=== PATIENT | male | born 1950 | race Caucasian/White ===

== ENCOUNTER 2016-07-14 06:06 | Day surgery (SDC) | payer OTHER ==
[~2016-07-14] VITALS: Ht 182.9 cm; Wt 96.1 kg
[~2016-07-14 06:06] MED LIST: AMMO226L2 TP; BETA15CR3 TP; CALC60CR2 TP; CLOB15CR3 TOP; LEVO25TA5 PO; LOSA1TAB35 PO; OXYC1TAB24 PO; SIMV40TA5 PO
[2016-07-14] MEDS ORDERED: fentaNYL-PF 50 mCg/mL 2 mL Inj ONE (06:07)
[2016-07-14] MEDS ORDERED: Propofol 10,000 mCg/mL 20 mL Inj ONE (06:07)
[2016-07-14] MEDS: Lactated Ringer's 1,000 ML IV SCH ×2 (06:17→07:55)
[2016-07-14 06:22] VITALS: BP 135/70; PULSE 50; RESP 16; O2SAT 94
[2016-07-14] MEDS ORDERED: oxyCODONE-Acetamin 5-325 mg Tablet PO PRN (07:20)
[2016-07-14] MEDS ORDERED: Lactated Ringer's 500 ML IV PRN (08:08)
[2016-07-14] MEDS ORDERED: Lactated Ringer's 1,000 ML IV SCH (08:08)
[2016-07-14] MEDS ORDERED: Phenylephrine 10,000 mCg/mL Inj IVPUSH PRN (08:10)
[2016-07-14] MEDS ORDERED: fentaNYL-PF 50 mCg/mL 2 mL Inj IVPUSH PRN (08:10)
[2016-07-14] MEDS ORDERED: Ondansetron 2 mg/mL 2 mL Inj IVPUSH PRN (08:10)
[2016-07-14] MEDS ORDERED: EPHEDrine Sulfate 50 mg/mL Inj IVPUSH PRN (08:10)
[2016-07-14] MEDS ORDERED: Atropine 0.4 mg/mL Inj IVPUSH PRN (08:10)
[2016-07-14] MEDS ORDERED: Lidocaine 1%-Epi 1:100,000 20 mL Inj INJ ONE (08:10)
[2016-07-14 08:25] VITALS: BP 132/86; PULSE 56; RESP 16; O2SAT 96
[2016-07-14 08:55] VITALS: BP 116/7; PULSE 68; RESP 14; O2SAT 98
--- NOTE | 2016-07-14 09:04 | OP ---
[address] [address] OPERATIVE REPORT PATIENT: JONNY ENNIS : 1950 MR#: [id number] ADMIT: 07/14/2016 JOB ID: [id number] DATE OF SURGERY: 07/14/2016 PREOPERATIVE DIAGNOSIS(ES): Right carpal tunnel syndrome. POSTOPERATIVE DIAGNOSIS(ES): Right carpal tunnel syndrome. PROCEDURE: Right open carpal tunnel release. SURGEON: Justin Levy D.O. ANESTHESIA: Anne Marie block. HISTORY: The patient is a pleasant 65-year-old male with a longstanding history of right hand pain and paresthesias. He failed conservative treatment with nighttime bracing and demonstrated some findings of carpal tunnel syndrome on electrodiagnostic studies. As such we discussed the risks, benefits, and indications to proceed with a right open carpal tunnel release. He understood the risks include, but not limited to, neurovascular injury, tendon injury, infection, failure of fixation, failure to resolve the patient's preoperative symptoms, stiffness, persistent pain which may require further intervention. Patient had all questions answered. Consent was signed and placed in the chart. PROCEDURE IN DETAIL: The patient was brought to the operative suite and placed supine on the operating table. Surgical time-out was performed. Everyone in the room was in agreement. After appropriate anesthesia was obtained, the right hand was then prepped and draped in sterile fashion. A 2 cm longitudinal incision was made in line with the radial aspect of the ring finger and ulnar aspect of the palmaris longus. The incision was kept distal to the wrist crease and proximal to Obrien's cardinal line. Subcutaneous tissues were dissected with bipolar electrocautery utilized to maintain hemostasis throughout the procedure. The palmar fascia was first identified and incised longitudinally in line with the skin incision followed by exposure of the underlying transcarpal ligament. The transcarpal ligament was then released in its entirety to include the distal extent of the antebrachial fascia. Copious irrigation was performed followed by closure of skin with 5-0 nylon simple interrupted fashion. The patient was then placed in a bulky soft dressing. ESTIMATED BLOOD LOSS: Less than 1 cc. COMPLICATIONS: None. DISPOSITION: The patient tolerated the procedure well. Anesthesia was reversed. The patient was transferred to PACU for recovery. POSTOPERATIVE PLAN: The patient will follow up in the office in 2 weeks. We will remove the patient's sutures at that time and have him start working on range of motion and scar mobilization.
--- NOTE | 2016-07-14 17:41 | PCM.ANEP1 ---
Post Anesthesia PACU Phase 1 Assessment Anesthetic Administered: Regional Block (shan block) Level of Alertness: Awake, talking NAILS's with Equal Strength: Yes Pain: No Nausea or Vomiting: No CV Function & Hydration Stable: No Airway Device: Oxygen Delivery: Room Air Lungs: Normal Air Movement Dermatome Level: Full Sensation PACU Phase 2 Assessment Complications: No Follow up Care: N/A Patient Instructions Provided: N/A Giovanny Mccarthy MD July 14, 2016 17:41
--- NOTE | 2016-07-14 17:41 | PCM.HPANE ---
Patient Data Surgeon Admitting Provider: Attending Provider:Justin Levy DO Primary Care Physician:Ramakrishna Galindo MD Other Provider:Indu Eddy Anesthesia Reason for Visit Right Carpal Tunnel Syndrome Ht/WT & BMI Height (Feet): 6 Height (Inches): 0 Weight (Kilograms): 96.1 Body Mass Index 28.00 Allergies Coded Allergies: No Known Allergies (Unverified , 07/23/15) Past Anesthesia History Anesthesia History: Denies:: Abnormal Airway, Anesthesia Reactions, Difficult Intubation, Fam Anesthesia Reaction, Fam Malignant Hypertherm, Malignant Hyperthermia Diabetes History Hx Diabetes?: No Type of Diabetes: Type II Glycemic Control: Diet Controlled MRSA MRSA: No Medications Home Meds Incl Beta Lele: No Reported Medications Calcipotriene (Dovonex)120 Gm Cream..g.120 Gm TP BID 0.005% 07/23/15 Ammonium Lactate (Lac-Hydrin Five)113 Gm [id number] Gm TP BID 12% 07/23/15 Clobetasol Propionate/Emoll (Clobetasol Emollient 0.05% Crm)15 Gm Cream..g.1 Appl TOP BID #1 TUBE 07/23/15 Simvastatin 40 Mg [id number] Mg PO HS 30 Days Ref 0 07/23/15 Losartan/HCTZ 100-12.5 mg 1 Each Tablet1 Tablet PO DAILY Ref 0 07/23/15 Betamethasone Dipropionate 15 Gm Cream..g.15 Gm TP DAILY 07/23/15 Levothyroxine 25 Mcg [id number] Mcg PO DAILY Ref 0 07/23/15 oxyCODONE-Acetaminophen 5-325 mg 1 Each Tablet1-2 Tab PO DAILY PRN For Pain Ref 0 07/23/15 History History of ENT Problems?: Yes HEENT History: Denies:: Abnormal Airway Cataracts Difficult Intubation Dysphagia Glaucoma Hearing Problem Sinus Problem TMJ Denture Type: None Teeth Condition: Within Normal Limits Hx of Heart Problems?: Yes Cardiovascular History: Positive for:: Coronary Artery Disease (hyperlipidemia ) Hypertension Denies:: AICD Abdominal Aortic Aneurism Atrial Fibrillation Cardiac Surgery Chest Pain Congestive Heart Failure Edema Heart Murmur Irregular Heartbeat Pacemaker Peripheral Vascular Rheumatic Fever Thrombophlebitis Valvular Heart Disease Hx of Respiratory Problem?: No Respiratory History: Denies:: Asthma COPD Chest Surgery Cough Dyspnea Emphysema Hemoptysis Oxygen Administration Pneumonia Pulmonary Embolism Tuberculosis Use of C-PAP Machine Use of Inhalers / NEBS Hx Neurologic Problems?: No Neurological History: Denies:: Alzheimer's Disease CVA Dementia Dizziness Headaches Multiple Sclerosis Parkinson's Disease Peripheral Neuropathy Seizures TIA Hx of GI Problems?: Yes Gastrointestinal History: Denies:: Cirrhosis Diverticulitis Gall Bladder Disease Gastroesphageal Reflux Gastrointestinal Bleeding Heartburn Hepatitis Hiatal Hernia Liver Disease Rectal Bleeding Other GI Pertinent History: hx of diverticulitus with bowel resection Hx of Problems?: No Genitourinary History: Denies:: HX of Hemodialysis Kidney Stones Urinary Tract Infection HX of Peritoneal Dialysis: No Male Hx: Denies:: Prostate Problems Scrotal Mass Testicular Surgery Skin History: Denies:: History Skin Disorders? Pressure Ulcers Hx Musculoskeletal Problems?: Yes Musculoskeletal History: Positive for:: Degenerative Joint (r carpal tunnel, chronic r shoulder pain) Joint Replacement (S/P RT UNI KNEE) Musculoskeletal Trauma (S/P LT KNEE SCOPE) Denies:: Back Injury Fibromyalgia Myasthenia Gravis Osteoarthritis Rheumatoid Arthritis Systemic Lupus Hx of Psycho/Social Problems?: No Psycho Social History: Denies:: Anxiety Bipolar Disorder Hx Depression Suicide Attempt Hx Surgeries?: Yes (bowel resection, r uni knee, r carpal tunnel) Hx Any Other Health Problems?: Yes Other History: Positive for:: Thyroid Disease (hypo) Denies:: Cancer Endocrine Disease Hospitalization History Blood Transfusions: Denies:: Blood Transfusions Hx Diabetes: No Hx Alcohol Use: Yes (mild) Smoking Status: Former Smoker Have You Smoked inLast 12 mo: No Stop/Bang Risk Assessment Category Category 1A: Patient has history of documented sleep apnea, and HAS NOT received any narcotic, sedative or anesthesia administration during this stay. Category 1B: Patient has history of documented sleep apnea, and HAS received any narcotic , sedative or anesthesia administration during this stay Category 2: Patient has SUSPECTED Obstructive Sleep Apnea, and HAS received any narcotic , sedative or anesthesia administration during this stay. Category 3: Patient has SUSPECTED Obstructive Sleep Apnea and HAS NOT received narcotic, sedative or anesthesia administration during this stay. Category 4: Outpatient in Procedural Areas with known sleep apnea or who screen positive for High Risk via the STOP/BANG questionnaire. Exam Exam Vital Signs Vital Signs Date Time Temp Pulse Resp B/P Pulse Ox O2 Delivery O2 Flow Rate FiO2 07/14/17 06:22 36.1 50 16 135/70 94 Room Air General Appearance: Alert, Oriented X3, Cooperative, No Acute Distress HEENT/AIRWAY: MP 2, Neck Movement (FROM), Mouth Opening (3 FBMO) Lungs: Normal Air Movement Heart: Regular Rate/Rhythm Meds/Labs/Diagnostics Admission Meds Current Medications Lactated Ringer's (Lr) 1,000 ml @ 120 mls/hr [id number] IV Last administered on t 06:17; Start 07/14/16 at 05:00; Stop 07/14/16 at 13:19 Plan Impression Patient chart reviewed, patient interviewed and anesthestic plan with risks, benefits, and alternatives discussed, and informed consent obtained. NPO per Anesth. Guidelines: Yes ASA Physical Status: ASA2 Mod Systemic Disease Anesthetic Plan: Regional Block Bene/Risks/Altern/Consents: Yes HP Complete Prior to Induction: Yes Giovanny Mccarthy MD July 14, 2016 07:35
== END 2016-07-14 23:59 | disposition home or self-care (01) ==
LOC: SAS 06:06
PROVIDERS: ATTEND Orthopaedic Surgery
DX: G56.01 Carpal tunnel syndrome, right upper limb (principal); M19.031 Primary osteoarthritis, right wrist; M77.8 Other enthesopathies, not elsewhere classified; I25.10 Atherosclerotic heart disease of native coronary artery without angina pectoris; I10 Essential (primary) hypertension; E78.5 Hyperlipidemia, unspecified; E11.9 Type 2 diabetes mellitus without complications; M19.011 Primary osteoarthritis, right shoulder; M17.12 Unilateral primary osteoarthritis, left knee; Z96.651 Presence of right artificial knee joint; Z87.891 Personal history of nicotine dependence
CPT/HCPCS: 64721; J3010; J7120